=== PATIENT | female | born 1960 | race Caucasian/White ===

== ENCOUNTER 2021-10-18 17:20 | Inpatient (IN) | payer OTHER ==
[2021-10-18 17:57] LABS: #Eosinphils 0.1 10x3/uL (0.0-0.5); #Monocytes 0.5 10x3/uL (0.0-1.1); #Neutrophils 5.5 10x3/uL (1.5-8.4); %Basophils 0.2 % (0.0-2.0); %Eosinophils 0.9 % (0.0-6.0); %Lymphocytes 32.3 % (18.0-47.0); %Monocytes 5.7 % (0.0-10.0); %Neutrophils 60.6 % (40.0-75.0); Hemoglobin 12.7 g/dL (12.0-15.5); Mean Corpuscular HGB CONC 32.5 g/dL (32.0-36.0); Mean Corpuscular Hemoglobin 24.1 pg (27.0-33.0); Mean Corpuscular Volume 74.1 fl (81.6-98.3); Mean Platelet Volume 8.8 fl (7.4-10.4); Platelet Count 310 10x3/uL (150-450); RBC Distribution Width 16.1 % (11.5-14.5); Red Blood Cell (RBC) Count 5.28 10x6/uL (3.90-5.03); White Blood Cell (WBC) Count 9.1 10x3/uL (3.5-10.5)
[2021-10-18 18:13] LABS: ALT (SGPT) 13 U/L (8-55); AST (SGOT) 10 U/L (5-34); Albumin 4.2 g/dL (3.5-5.0); Alkaline Phosphatase 145 U/L (40-110); Anion Gap 15 mmol/L (10-20); BUN (Urea Nitrogen) 16 mg/dL (9.8-20.1); Bilirubin, Total 0.3 mg/dL (0.2-1.2); CK (CPK) 38 U/L (29-168); Calc. Creatinine Clearance 0 mL/min (70-130); Calcium 9.2 mg/dL (7.8-10.44); Carbon Dioxide 24 mmol/L (22-29); Chloride 102 mmol/L (98-107); Globulin 2.8 g/dL (2.4-3.5); Glucose 361 mg/dL (70-105); Potassium 4.5 mmol/L (3.5-5.1); Sodium 136 mmol/L (136-145)
[2021-10-18] MEDS ORDERED: diphenhydrAMINE 50 MG/ML VIAL ONE (18:17)
[2021-10-18] MEDS ORDERED: Cefepime 2 GM VIAL ONE (18:17)
[2021-10-18] MEDS ORDERED: methylPREDNISolone Sod Succ/PF 125 MG/2 ML VIAL ONE (18:17)
[2021-10-18 18:25] LABS: Actual Bicarbonate (HCO3v) 26 mEq/L (22-28); Base Excess 0.3 mEq/L (-2.0 to +3.0); Calcium, Ionized (venous) 1.16 mmol/L (1.16-1.32); Chloride (VBG) 101 mmol/L (98-106); Hemoglobin (Hb) 13.5 g/dL (11.7-16.0); Potassium (VBG) 4.12 mmol/L (3.70-5.30); Puncture Site Other Site; RapidComm Collect By CBN; Sodium 136.7 mmol/L (133-146); pH (venous) 7.39 (7.32-7.43)
[2021-10-18] MEDS ORDERED: Acetaminophen 325 MG TAB PO PRN (19:12)
[2021-10-18] MEDS ORDERED: Dextrose 50% Abboject 50 ML SYRINGE SLOW IVP PRN (19:12)
[2021-10-18] MEDS ORDERED: Dextrose 5% in Water 1,000 ML IV PRN (19:12)
[2021-10-18] MEDS ORDERED: Calcium Carbonate 500 MG ChewTAB PO PRN (19:12)
[2021-10-18] MEDS ORDERED: VANCOMYCIN 2 GRAM/400 ML BAG 2 GM in Premix Bag 1 BAG IVPB SCH (19:45)
[2021-10-18 21:20] VITALS: BMI 37.9
[2021-10-18] MEDS ORDERED: Famotidine 20 MG TAB PO SCH (22:15)
[2021-10-18] MEDS ORDERED: busPIRone HCl 5 MG TAB PO SCH (22:15)
[2021-10-18] MEDS ORDERED: guaiFENesin ER 600 MG TAB PO SCH (22:15)
[2021-10-18] MEDS ORDERED: Benzonatate 100 MG CAP PO SCH (22:15)
[2021-10-18] MEDS ORDERED: Lantus 1000 UNITS/10 ML VIAL SC SCH (22:15)
[2021-10-18] MEDS: Guaifenesin DM 100-10/5 ML UDCUP PO PRN (22:52)
[2021-10-18] MEDS: HumaLOG 300 UNITS/3 ML VIAL SC PRN (22:54)
[2021-10-18] MEDS: HYDROcodone/Acetaminophen 5/325 mg Tablet PO PRN (22:57)
[2021-10-18] MEDS: Senokot S 8.6-50 MG TAB PO PRN (22:58)
[2021-10-19] MEDS ORDERED: Ketorolac Tromethamine 30 MG/ML VIAL IVP SCH (01:45)
[2021-10-19 04:33] LABS: Anion Gap 16 mmol/L (10-20); BUN (Urea Nitrogen) 16 mg/dL (9.8-20.1); CRP (Inflammatory) 0.68 mg/dL (= or < 0.5); Calc. Creatinine Clearance 134 mL/min (70-130); Calcium 9.1 mg/dL (7.8-10.44); Carbon Dioxide 21 mmol/L (22-29); Cardiac Risk 3.9 (Less than 4.5); Chloride 104 mmol/L (98-107); Cholesterol 143 mg/dl (< 200 Desired); Glucose 368 mg/dL (70-105); HDL Cholesterol 37 mg/dL (>60 Neg Risk); LDL Cholesterol, Calculated 93 mg/dL; Potassium 4.6 mmol/L (3.5-5.1); Sodium 136 mmol/L (136-145); Triglycerides 65 mg/dL (Less than 150)
[2021-10-19 04:35] LABS: Hemoglobin 12.1 g/dL (12.0-15.5); Mean Platelet Volume 9.3 fl (7.4-10.4); Platelet Count 303 10x3/uL (150-450); RBC Distribution Width 15.7 % (11.5-14.5); Red Blood Cell (RBC) Count 5.04 10x6/uL (3.90-5.03); White Blood Cell (WBC) Count 8.9 10x3/uL (3.5-10.5)
[2021-10-19] MEDS: HYDROcodone/Acetaminophen 5/325 mg Tablet PO PRN ×3 (05:00→16:07)
[2021-10-19] MEDS: Cefepime 1 GM in Sodium Chloride 0.9% 100 ML IVPB SCH ×2 (05:00→17:32)
[2021-10-19 06:12] LABS: MDiff Complete? YES
[2021-10-19 06:15] LABS: Band 2 % (5-11); Lymphocytes 10 % (21-51); Monocytes 3 % (0-10); Neutrophil 84 % (42-75); Reactive Lymphocytes 1 % (0-10)
[2021-10-19 06:16] LABS: Platelet Morphology Comment Appears Adequate; RBC Morphology Normal
[2021-10-19] MEDS: HumaLOG 300 UNITS/3 ML VIAL SC PRN ×2 (06:22→21:32)
[2021-10-19 06:40] LABS: SARS-CoV-2 NAA Rapid Test Not Detected (NotDetected)
[2021-10-19] MEDS: Mometasone/Formoterol 200/5 60 PUFF INH SCH ×2 (07:10→19:15)
[2021-10-19] MEDS ORDERED: Vancomycin 1 GM in Premix Bag 1 BAG IVPB SCH (09:00)
[2021-10-19] MEDS: Losartan Potassium 50 MG TAB PO SCH (09:27)
[2021-10-19] MEDS: predniSONE 20 MG TAB PO SCH (09:27)
[2021-10-19] MEDS: guaiFENesin ER 600 MG TAB PO SCH ×2 (09:28→21:26)
[2021-10-19] MEDS: busPIRone HCl 5 MG TAB PO SCH ×2 (09:28→21:27)
[2021-10-19] MEDS: metFORMIN 500 MG TAB PO SCH ×2 (09:28→16:08)
[2021-10-19] MEDS: Benzonatate 100 MG CAP PO SCH ×3 (09:29→21:25)
[2021-10-19] MEDS: Enoxaparin Sodium 40 MG/0.4 ML SYRINGE SC SCH (09:29)
[2021-10-19] MEDS: VANCOMYCIN 1.25 GM/250 ML BAG 1.25 GM in Premix Bag 1 BAG IVPB SCH ×2 (09:29→21:28)
[2021-10-19] MEDS: Aspirin 81 mg Enteric Coated Tablet PO SCH (09:29)
[2021-10-19] MEDS: Famotidine 20 MG TAB PO SCH ×2 (09:43→21:25)
[2021-10-19 11:51] LABS: Hemoglobin A1c 8.5 % (4.0-6.0)
[2021-10-19] MEDS: HumaLOG 300 UNITS/3 ML VIAL SC SCH (16:05)
[2021-10-19] MEDS: Nicotine 14 MG PATCH TOP SCH (16:07)
[2021-10-19] MEDS ORDERED: Lantus 1000 UNITS/10 ML VIAL SC SCH ×2 (21:00)
[2021-10-20 05:06] LABS: #Monocytes 0.5 10x3/uL (0.0-1.1); #Neutrophils 5.8 10x3/uL (1.5-8.4); %Basophils 0.2 % (0.0-2.0); %Eosinophils 0.4 % (0.0-6.0); %Lymphocytes 32.8 % (18.0-47.0); %Monocytes 5.2 % (0.0-10.0); Hemoglobin 11.5 g/dL (12.0-15.5); Mean Corpuscular HGB CONC 32.3 g/dL (32.0-36.0); Mean Corpuscular Hemoglobin 24.1 pg (27.0-33.0); Mean Corpuscular Volume 74.6 fl (81.6-98.3); Mean Platelet Volume 9.1 fl (7.4-10.4); Platelet Count 285 10x3/uL (150-450); RBC Distribution Width 16.1 % (11.5-14.5); Red Blood Cell (RBC) Count 4.77 10x6/uL (3.90-5.03); White Blood Cell (WBC) Count 9.5 10x3/uL (3.5-10.5)
[2021-10-20 05:21] LABS: Anion Gap 13 mmol/L (10-20); BUN (Urea Nitrogen) 16 mg/dL (9.8-20.1); Calc. Creatinine Clearance 141 mL/min (70-130); Calcium 8.8 mg/dL (7.8-10.44); Carbon Dioxide 23 mmol/L (22-29); Chloride 107 mmol/L (98-107); Glucose 255 mg/dL (70-105); Potassium 4.1 mmol/L (3.5-5.1); Sodium 139 mmol/L (136-145)
[2021-10-20] MEDS: Cefepime 1 GM in Sodium Chloride 0.9% 100 ML IVPB SCH ×2 (05:39→16:07)
[2021-10-20] MEDS: HumaLOG 300 UNITS/3 ML VIAL SC PRN ×4 (05:49→21:49)
[2021-10-20] MEDS: Mometasone/Formoterol 200/5 60 PUFF INH SCH ×2 (06:54→19:34)
[2021-10-20] MEDS ORDERED: Ondansetron PF 4 MG/2 ML Vial ONE (07:54)
[2021-10-20] MEDS: Famotidine 20 MG TAB PO SCH ×2 (08:10→21:48)
[2021-10-20] MEDS: Enoxaparin Sodium 40 MG/0.4 ML SYRINGE SC SCH (08:10)
[2021-10-20] MEDS: Ondansetron PF 4 MG/2 ML Vial IVP PRN (08:10)
[2021-10-20] MEDS: Aspirin 81 mg Enteric Coated Tablet PO SCH (08:11)
[2021-10-20] MEDS: Benzonatate 100 MG CAP PO SCH ×3 (08:11→21:48)
[2021-10-20] MEDS: predniSONE 20 MG TAB PO SCH (08:11)
[2021-10-20] MEDS: busPIRone HCl 5 MG TAB PO SCH ×2 (08:11→21:48)
[2021-10-20] MEDS: guaiFENesin ER 600 MG TAB PO SCH ×2 (08:11→21:49)
[2021-10-20] MEDS: Losartan Potassium 50 MG TAB PO SCH (08:11)
[2021-10-20 08:12] LABS: Vancomycin, Trough 11.7 ug/mL
[2021-10-20] MEDS: VANCOMYCIN 1.25 GM/250 ML BAG 1.25 GM in Premix Bag 1 BAG IVPB SCH ×2 (08:12→21:46)
[2021-10-20] MEDS: metFORMIN 500 MG TAB PO SCH ×2 (08:15→16:07)
[2021-10-20] MEDS: HumaLOG 300 UNITS/3 ML VIAL SC SCH ×3 (08:15→16:30)
[2021-10-20] MEDS: Nicotine 14 MG PATCH TOP SCH (16:07)
[2021-10-20] MEDS ORDERED: Guaifenesin DM 100-10/5 ML UDCUP ONE (17:00)
[2021-10-20] MEDS ORDERED: Labetalol HCl 100 MG/20 ML VIAL SLOW IVP SCH (17:15)
[2021-10-20] MEDS: HYDROcodone/Acetaminophen 5/325 mg Tablet PO PRN (17:41)
[2021-10-20] MEDS: Senokot S 8.6-50 MG TAB PO PRN (17:42)
[2021-10-20] MEDS: Guaifenesin DM 100-10/5 ML UDCUP PO PRN (17:42)
[2021-10-20] MEDS: Lantus 1000 UNITS/10 ML VIAL SC SCH (21:49)
[2021-10-21 05:00] LABS: #Eosinphils 0.1 10x3/uL (0.0-0.5); #Monocytes 0.5 10x3/uL (0.0-1.1); #Neutrophils 5.4 10x3/uL (1.5-8.4); %Basophils 0.2 % (0.0-2.0); %Eosinophils 0.6 % (0.0-6.0); %Lymphocytes 36.9 % (18.0-47.0); %Monocytes 4.9 % (0.0-10.0); %Neutrophils 56.7 % (40.0-75.0); Hemoglobin 11.3 g/dL (12.0-15.5); Mean Corpuscular HGB CONC 32.5 g/dL (32.0-36.0); Mean Corpuscular Hemoglobin 24.2 pg (27.0-33.0); Mean Corpuscular Volume 74.5 fl (81.6-98.3); Mean Platelet Volume 8.7 fl (7.4-10.4); Platelet Count 267 10x3/uL (150-450); RBC Distribution Width 16.2 % (11.5-14.5); Red Blood Cell (RBC) Count 4.67 10x6/uL (3.90-5.03); White Blood Cell (WBC) Count 9.6 10x3/uL (3.5-10.5)
[2021-10-21 05:13] LABS: Anion Gap 13 mmol/L (10-20); BUN (Urea Nitrogen) 19 mg/dL (9.8-20.1); Calc. Creatinine Clearance 157 mL/min (70-130); Calcium 9.1 mg/dL (7.8-10.44); Carbon Dioxide 25 mmol/L (22-29); Chloride 105 mmol/L (98-107); Glucose 168 mg/dL (70-105); Potassium 3.8 mmol/L (3.5-5.1); Sodium 139 mmol/L (136-145)
[2021-10-21] MEDS: Cefepime 1 GM in Sodium Chloride 0.9% 100 ML IVPB SCH (05:46)
[2021-10-21] MEDS: Ondansetron PF 4 MG/2 ML Vial IVP PRN (06:10)
[2021-10-21] MEDS: Mometasone/Formoterol 200/5 60 PUFF INH SCH ×2 (06:53→19:10)
[2021-10-21] MEDS: metFORMIN 500 MG TAB PO SCH ×2 (08:08→17:13)
[2021-10-21] MEDS: Benzonatate 100 MG CAP PO SCH ×3 (08:08→21:20)
[2021-10-21] MEDS: guaiFENesin ER 600 MG TAB PO SCH ×2 (08:08→21:20)
[2021-10-21] MEDS: busPIRone HCl 5 MG TAB PO SCH ×2 (08:09→21:20)
[2021-10-21] MEDS: predniSONE 20 MG TAB PO SCH (08:09)
[2021-10-21] MEDS: Aspirin 81 mg Enteric Coated Tablet PO SCH (08:09)
[2021-10-21] MEDS: Famotidine 20 MG TAB PO SCH ×2 (08:09→21:20)
[2021-10-21] MEDS: Losartan Potassium 50 MG TAB PO SCH (08:09)
[2021-10-21] MEDS: HYDROcodone/Acetaminophen 5/325 mg Tablet PO PRN ×2 (08:10→12:35)
[2021-10-21] MEDS: Enoxaparin Sodium 40 MG/0.4 ML SYRINGE SC SCH (08:11)
[2021-10-21] MEDS: VANCOMYCIN 1.25 GM/250 ML BAG 1.25 GM in Premix Bag 1 BAG IVPB SCH (08:11)
[2021-10-21] MEDS: HumaLOG 300 UNITS/3 ML VIAL SC SCH ×3 (08:12→17:13)
[2021-10-21] MEDS: HumaLOG 300 UNITS/3 ML VIAL SC PRN ×3 (12:35→21:21)
[2021-10-21] MEDS: Senokot S 8.6-50 MG TAB PO PRN (12:35)
[2021-10-21] MEDS ORDERED: Magnesium Citrate 300 ML BOT PO SCH (13:00)
[2021-10-21] MEDS: Nicotine 14 MG PATCH TOP SCH (14:39)
[2021-10-21] MEDS ORDERED: hydrALAZINE 20 MG/ML VIAL SLOW IVP PRN (15:05)
[2021-10-21 19:36] LABS: Vancomycin, Trough 11.8 ug/mL
[2021-10-21] MEDS: Lantus 1000 UNITS/10 ML VIAL SC SCH (21:21)
[2021-10-22] MEDS: HumaLOG 300 UNITS/3 ML VIAL SC SCH ×2 (06:38→12:11)
[2021-10-22] MEDS: Mometasone/Formoterol 200/5 60 PUFF INH SCH (06:59)
[2021-10-22] MEDS: guaiFENesin ER 600 MG TAB PO SCH (09:11)
[2021-10-22] MEDS: Benzonatate 100 MG CAP PO SCH ×2 (09:39→16:01)
[2021-10-22] MEDS: metFORMIN 500 MG TAB PO SCH (09:39)
[2021-10-22] MEDS: busPIRone HCl 5 MG TAB PO SCH (09:39)
[2021-10-22] MEDS: Famotidine 20 MG TAB PO SCH (09:39)
[2021-10-22] MEDS: Aspirin 81 mg Enteric Coated Tablet PO SCH (09:39)
[2021-10-22] MEDS: Losartan Potassium 50 MG TAB PO SCH (09:39)
[2021-10-22] MEDS: Guaifenesin DM 100-10/5 ML UDCUP PO PRN (09:40)
[2021-10-22] MEDS: predniSONE 20 MG TAB PO SCH (09:40)
[2021-10-22] MEDS: Enoxaparin Sodium 40 MG/0.4 ML SYRINGE SC SCH (09:41)
[2021-10-22 12:10] VITALS: BP 106/59; TEMP 97.4
[2021-10-22] MEDS: Nicotine 14 MG PATCH TOP SCH (16:00)
[2021-10-22] MEDS ORDERED: Lantus 1000 UNITS/10 ML VIAL SC SCH (21:00)
[2021-10-23] MEDS ORDERED: predniSONE 20 MG TAB PO SCH (08:00)
== END 2021-10-22 16:05 | disposition home or self-care (01) | DRG 607 ==
LOC: CSHERS 17:20 → CSHTELE 20:25
PROVIDERS: ADMIT Student in an Organized Health Care Education/Training Program; ATTEND Internal Medicine
PROC: 0HBMXZZ Excision of Right Foot Skin, External Approach (ICD-10-PCS; principal; 2021-10-19)
DX: L85.0 Acquired ichthyosis (principal); J44.1 Chronic obstructive pulmonary disease with (acute) exacerbation; Z20.822 Contact with and (suspected) exposure to COVID-19; F17.210 Nicotine dependence, cigarettes, uncomplicated; I10 Essential (primary) hypertension; E11.42 Type 2 diabetes mellitus with diabetic polyneuropathy; M19.90 Unspecified osteoarthritis, unspecified site; F43.10 Post-traumatic stress disorder, unspecified; E66.9 Obesity, unspecified; F42.9 Obsessive-compulsive disorder, unspecified; L85.9 Epidermal thickening, unspecified; E78.5 Hyperlipidemia, unspecified; E78.00 Pure hypercholesterolemia, unspecified; D64.9 Anemia, unspecified; M79.7 Fibromyalgia; E11.65 Type 2 diabetes mellitus with hyperglycemia; Z79.4 Long term (current) use of insulin; Z79.84 Long term (current) use of oral hypoglycemic drugs; Z71.6 Tobacco abuse counseling; Z79.899 Other long term (current) drug therapy; Z79.82 Long term (current) use of aspirin; Z86.73 Personal history of transient ischemic attack (TIA), and cerebral infarction without residual deficits; Z90.49 Acquired absence of other specified parts of digestive tract; Z98.49 Cataract extraction status, unspecified eye; Z82.49 Family history of ischemic heart disease and other diseases of the circulatory system; Z68.37 Body mass index [BMI] 37.0-37.9, adult; Z88.0 Allergy status to penicillin; Z88.1 Allergy status to other antibiotic agents; Z88.2 Allergy status to sulfonamides; Z88.5 Allergy status to narcotic agent; Z88.8 Allergy status to other drugs, medicaments and biological substances
CPT/HCPCS: 36415; 36416; 71045; 80048; 80053; 80061; 80202; 82010; 82550; 82805; 83036; 83605; 83880; 84145; 84484; 85025; 85652; 86140; 87040; 93005; 93010; 93923; 96365; 96375; J0692; J1200; J1650; J1815; J1885; J2405; J2930; J3370; J3490; J7512; J7620; U0002